=== PATIENT | female | born 1960 | race Caucasian/White ===

== ENCOUNTER 2025-01-27 08:46 | Inpatient (IN) | payer MEDICARE, BC ==
[2025-01-27] MEDS ORDERED: Sodium Chloride 0.9% 10 ML Syringe FLUSH PRN (09:18)
[2025-01-27] MEDS: Doxycycline 100 MG in Sodium Chloride 0.9% 100 ML IV ONE (09:24)
[2025-01-27] MEDS: Sodium Chloride 0.9% 1,000 ML IV SCH ×4 (10:05→18:39)
[2025-01-27 10:19] LABS: BASOPHILS ABSOLUTE AUTO 0.01 K/uL (0.02-0.10); BASOPHILS PERCENT AUTO 0.4 % (0.0-0.5); EOSINOPHILS ABSOLUTE AUTO 0.01 K/uL (0.04-0.40); EOSINOPHILS PERCENT AUTO 0.4 % (1.0-5.0); HEMATOCRIT 39.6 % (37.0-47.0); HEMOGLOBIN 13.9 g/dL (11.5-16.5); LYMPHOCYTES ABSOLUTE AUTO 0.51 K/uL (1.50-4.00); LYMPHOCYTES PERCENT AUTO 21.4 % (20.0-40.0); MEAN CORPUSCULAR HGB CONC 35.1 g/dL (31.0-35.0); MEAN CORPUSCULAR VOLUME 88 fL (76-96); MEAN PLATELET VOLUME 10.7 fL (6.0-10.0); MONOCYTES PERCENT AUTO 12.6 % (3.0-10.0); NEUTROPHILS ABSOLUTE AUTO 1.55 K/uL (2.00-7.50); NEUTROPHILS PERCENT AUTO 65.2 % (45.0-70.0); PLATELET COUNT,PLT 78 K/uL (150-500); RED BLOOD CELL COUNT 4.49 M/uL (3.80-5.80); RED CELL DISTRIBUTION WIDTH 12.7 % (11.0-16.0); WHITE BLOOD CELL COUNT,WBC 2.4 K/uL (4.0-11.0)
[2025-01-27 10:23] LABS: A/G RATIO 1.1 (0.8-2.0); ALANINE AMINOTRANSFERASE,ALT 88 U/L (12-78); ALBUMIN 3.6 g/dL (3.4-5.0); ALKALINE PHOSPHATASE 115 U/L (46-116); ANION GAP 14.6 mmol/L (5.0-15.0); ASPARTATE AMNIOTRANSFERASE,AST 95 U/L (15-37); BILIRUBIN TOTAL 0.6 mg/dL (0.0-1.0); BLOOD UREA NITROGEN,BUN 8 mg/dL (8-26); BUN/CREATININE RATIO 10.8 (6-25); CALCIUM 8.5 mg/dL (8.5-10.1); CARBON DIOXIDE,CO2 25.7 mmol/L (21.0-32.0); CHLORIDE,CL 100 mmol/L (98-107); CREATININE 0.74 mg/dL (0.55-1.02); ESTIMATED GFR 89 mL/min (>60); GLUCOSE RANDOM 87 mg/dL (74-100); POTASSIUM,K 3.3 mmol/L (3.5-5.1); PROTEIN TOTAL,TP 6.8 g/dL (6.4-8.2); SODIUM,NA 137 mmol/L (136-145); TROPONIN I HIGH SENSITIVITY 8.3 pg/ml (<=60.4)
[2025-01-27] MEDS: Sodium Chloride 0.9% 50 ML SDV FLUSH SCH (11:39)
[2025-01-27] MEDS: Iopamidol 755 Mg/ML 100 ML Bottle IV PRN (11:39)
[2025-01-27] MEDS: Magnesium Sulfat/D5W 1GM/100ML 1 GM in Premix Bag 1 BAG IV ONE (11:53)
[2025-01-27] MEDS: Acetaminophen 325 MG Tab PO ONE (12:19)
[2025-01-27] MEDS: Potassium Chloride 20 MEQ Tab.ER PO ONE (12:42)
[2025-01-27 13:12] LABS: LACTIC ACID 0.8 mmol/L (0.4-2.0)
[2025-01-27] MEDS ORDERED: Ondansetron 4 MG/2 ML SDV IV PRN (13:57)
[2025-01-27 15:38] LABS: APPEARANCE,URINE CLEAR (CLEAR); BILIRUBIN,URINE NEGATIVE (NEGATIVE); COLOR,URINE YELLOW; GLUCOSE,URINE NEGATIVE (NEGATIVE); KETONES,URINE 15 mg/dL (NEGATIVE); LEUKOCYTE ESTERASE,URINE SMALL (NEGATIVE); NITRITE,URINE NEGATIVE (NEGATIVE); OCCULT BLOOD,URINE NEGATIVE (NEGATIVE); PROTEIN,URINE NEGATIVE (NEGATIVE); UROBILINOGEN,URINE 0.2 E.U./dL (0.2-1.0)
[2025-01-27 15:46] LABS: RBC,URINE 0-5 /HPF; SQUAMOUS EPITHELIAL CELLS,UR FEW /HPF
[2025-01-27] MEDS ORDERED: LORazepam 1 MG Tab PO PRN (17:02)
[2025-01-27] MEDS: Doxycycline 100 MG in Sodium Chloride 0.9% 100 ML IV SCH (19:36)
[2025-01-27] MEDS: Acetaminophen 325 MG Tab PO PRN (19:37)
[2025-01-27] MEDS: Sucralfate 1 GM Tab PO SCH (19:37)
[2025-01-27] MEDS: Ketorolac 15 MG/ML SDV IVPUSH PRN (20:32)
[2025-01-28 07:55] LABS: BASOPHILS ABSOLUTE AUTO 0.05 K/uL (0.02-0.10); BASOPHILS PERCENT AUTO 1.6 % (0.0-0.5); EOSINOPHILS ABSOLUTE AUTO 0.02 K/uL (0.04-0.40); EOSINOPHILS PERCENT AUTO 0.6 % (1.0-5.0); HEMATOCRIT 34.3 % (37.0-47.0); LYMPHOCYTES ABSOLUTE AUTO 1.13 K/uL (1.50-4.00); LYMPHOCYTES PERCENT AUTO 35.1 % (20.0-40.0); MEAN CORPUSCULAR HEMOGLOBIN 31.1 pg (27.0-32.0); MEAN CORPUSCULAR VOLUME 89 fL (76-96); MEAN PLATELET VOLUME 10.2 fL (6.0-10.0); MONOCYTES ABSOLUTE AUTO 0.54 K/uL (0.20-0.80); MONOCYTES PERCENT AUTO 16.8 % (3.0-10.0); NEUTROPHILS ABSOLUTE AUTO 1.48 K/uL (2.00-7.50); NEUTROPHILS PERCENT AUTO 45.9 % (45.0-70.0); PLATELET COUNT,PLT 68 K/uL (150-500); RED BLOOD CELL COUNT 3.86 M/uL (3.80-5.80); RED CELL DISTRIBUTION WIDTH 12.7 % (11.0-16.0); WHITE BLOOD CELL COUNT,WBC 3.2 K/uL (4.0-11.0)
[2025-01-28 08:10] LABS: ANION GAP 11.6 mmol/L (5.0-15.0); BUN/CREATININE RATIO 9.8 (6-25); CALCIUM 7.7 mg/dL (8.5-10.1); CARBON DIOXIDE,CO2 25.9 mmol/L (21.0-32.0); CREATININE 0.61 mg/dL (0.55-1.02); EST CRCL DRUG DOSING (CG) 81.63 mL/min; MAGNESIUM 1.6 mg/dL (1.8-2.4); POTASSIUM,K 3.5 mmol/L (3.5-5.1)
[2025-01-28] MEDS: Losartan 50 MG Tab PO SCH (08:29)
[2025-01-28] MEDS: Cetirizine 10 MG Tab PO SCH (08:30)
[2025-01-28] MEDS: Magnesium Sulfat/D5W 1GM/100ML 1 GM in Premix Bag 1 BAG IV ONE ×2 (09:41→11:07)
[2025-01-28] MEDS: Lactobacillus Acidophilus/Lactobacillus Sporogenes (Probiotic) Tab PO SCH (11:14)
[2025-01-30 15:01] LABS: B. BURGDORFERI IGG IMMUNOBLOT Negative (Negative); B. BURGDORFERI IGM IMMUNOBLOT Negative (Negative)
== END 2025-01-28 12:35 | disposition home or self-care (01) | DRG 866 ==
LOC: LB.ED 08:46 → LB.MS 13:57 → UNDOADMIN 14:15
PROVIDERS: ADMIT Surgery; ATTEND Surgery
DX: R00.0 Tachycardia, unspecified (principal); A93.8 Other specified arthropod-borne viral fevers; I10 Essential (primary) hypertension; D69.6 Thrombocytopenia, unspecified; D70.3 Neutropenia due to infection; E83.42 Hypomagnesemia; E87.6 Hypokalemia; Z79.899 Other long term (current) drug therapy
CPT/HCPCS: 36415; 71275; 80048; 80053; 81001; 83605; 83735; 84484; 85025; 85379; 86140; 86617; 87040; 87086; 93005; 93010; 96361; 96365; 96367; 99222; 99238; 99285-25; A9270-GY; J1885; J3475; J3490; J7030; Q9967